=== PATIENT | female | born 1995 | race African-American/Black ===

== ENCOUNTER 2020-05-28 09:53 | Emergency (ER) | payer BC, OTHER ==
[2020-05-28] MEDS ORDERED: PROMETHAZINE INJ 25 MG/ML AMP ONE (10:34)
[2020-05-28] MEDS ORDERED: NA CHLORIDE 0.9% 1,000 ML ONE (10:34)
[2020-05-28] MEDS ORDERED: DIPHENHYDRAMINE 50 MG/ML VIAL ONE (10:34)
[2020-05-28 10:37] LABS: Urine Blood NEGATIVE (NEG); Urine Glucose NEGATIVE (NEG); Urine Protein NEGATIVE (NEG); Urine Specific Gravity 1.025 (1.005-1.030)
[2020-05-28 10:51] LABS: Urine Bacteria >50 /HPF (<20); Urine RBC <5 /HPF (NONE SEEN)
[2020-05-28 10:53] LABS: Absolute Lymphocytes (CBC) 1.7 K/uL (0.7-4.9); Basophils % 0.3 % (0-1.3); Lymphocytes % 14.3 % (15.3-44.8); MPV 7.7 fL (7.6-11.3); RBC Red Blood Cell Count 4.72 M/uL (3.86-4.86)
[2020-05-28 11:04] LABS: BUN Blood Urea Nitrogen 7 mg/dL (7-18); Bicarbonate 23 mmol/L (21-32); Glucose Level 87 mg/dL (74-106); Potassium 3.9 mmol/L (3.5-5.1); Sodium Level 136 mmol/L (136-145)
--- NOTE | 2020-05-28 11:21 | ER ---
Nurse's Notes [facility] Name: Fabrice Palma Age: 24 yrs Sex: Female : 1995 Arrival Date: 05/28/2020 Time: 09:56 Bed 6 Private MD: Diagnosis: Headache;Urinary tract infection, site not specified Presentation: 05/28 10:05 Chief complaint: Patient states: Frontal LOPEZ since Saturday, no relief with Tylenol, 10 jl7 weeks . 10:05 Coronavirus screen: Client denies travel out of the [place] in the last 14 days. headache, 7 Client presents with at least one sign or symptom that may indicate coronavirus-19. Standard/surgical mask placed on the client. Provider contacted for isolation considerations. Ebola Screen: No symptoms or risks identified at this time. Initial Sepsis Screen: Does the patient meet any 2 criteria? No. Patient's initial sepsis screen is negative. Does the patient have a suspected source of infection? No. Patient's initial sepsis screen is negative. Risk Assessment: Do you want to hurt yourself or someone else? Patient reports no desire to harm self or others. Onset of symptoms was May 24, 2020. Care prior to arrival: None. 10:05 Method Of Arrival: Ambulatory [facility] 10:05 Acuity: MOHINI 3 jl7 Triage Assessment: 10:05 Headache History: The patient has had previous headaches and this one is similar to jl7 previous episodes. General: Appears in no apparent distress. uncomfortable, Behavior is calm, cooperative, appropriate for age. Pain: Complains of pain in forehead Pain does not radiate. Pain currently is 7 out of 10 on a pain scale. Quality of pain is described as pressure, Pain began x5 days Is continuous, Also complains of no other associated symptoms. Neuro: Level of Consciousness is awake, alert, obeys commands, Oriented to person, place, time, situation. Cardiovascular: Patient's skin is warm and dry. Respiratory: Airway is patent Respiratory effort is even, unlabored, Respiratory pattern is regular, symmetrical. GI: Abdomen is non-distended, Patient currently denies diarrhea, nausea, vomiting. : No signs and/or symptoms were reported regarding the genitourinary system. Denies burning with urination. Derm: Skin is pink, warm \T\ dry. 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 - Social history:: Smoking status: Patient denies any tobacco usage or history of. Screenin:05 Abuse screen: Denies threats or abuse. Denies injuries from another. Nutritional jl7 screening: No deficits noted. Tuberculosis screening: No symptoms or risk factors identified. Fall Risk IV access (20 points). Total Santoro Fall Scale indicates No Risk (0-24 pts). Assessment: 10:05 General: see triage assessment. jl7 11:21 Reassessment: Patient appears in no apparent distress at this time. Patient and/or jl7 family updated on plan of care and expected duration. Pain level reassessed. Patient is alert, oriented x 3, equal unlabored respirations, skin warm/dry/pink. LOPEZ rate 2/10 at this time Patient states feeling better. Patient states symptoms have improved. 11:27 Reassessment: Pt will be discharged once fluids are done infusing. jl7 Vital Signs: 10:05 BP 123 / 80; Pulse 83; Resp 15; Temp 98.2; Pulse Ox 100% ; Weight 122.47 kg; Pain 7/10; jl7 11:16 BP 112 / 77; Pulse 84; Resp 16; Pulse Ox 98% ; jl7 11:21 Pain 2/10; jl7 Taz Coma Score: 11:24 Eye Response: spontaneous(4). Verbal Response: oriented(5). Motor Response: obeys kb commands(6). Total: 15. ED Course: 09:56 Patient arrived in ED. ag5 09:56 Lauro Kohler MD is Attending Physician. rn 09:58 [facility]C [facility] kb 09:58 Lauro Kohler MD is Attending Physician. kb 10:05 Arm band placed on right wrist. jl7 10:05 Patient has correct armband on for positive identification. Placed in gown. Bed in low jl7 position. Call light in reach. Side rails up X 1. Pulse ox on. NIBP on. Warm blanket given. 10:07 Mati Rader, RN is Primary Nurse. jl7 10:30 Initial lab(s) drawn, by nv, sent to lab. Urine collected: clean catch specimen, clear. jl7 Inserted saline lock: 20 gauge in right hand, using aseptic technique. Blood collected. 10:50 Triage completed. jl7 12:00 No provider procedures requiring assistance completed. IV discontinued, intact, jl7 bleeding controlled, No redness/swelling at site. Pressure dressing applied. Administered Medications: 10:40 Drug: NS 0.9% 1000 ml Route: IV; Rate: 1000 ml; Site: right hand; jl7 11:55 Follow up: Response: No adverse reaction; IV Status: Completed infusion; IV Intake: jl7 1000ml 10:40 Drug: Benadryl 12.5 mg Route: IVP; Site: right hand; jl7 11:05 Follow up: Response: No adverse reaction; Pain is decreased jl7 10:45 Drug: Phenergan 6.25 mg Route: IVP; Site: right hand; jl7 11:05 Follow up: Response: No adverse reaction; Pain is decreased jl7 11:31 Drug: Macrobid 100 mg Route: PO; jl7 12:01 Follow up: Response: No adverse reaction jl7 Intake: 11:55 IV: 1000ml; Total: 1000ml. jl7 Outcome: 11:21 Discharge ordered by . kb 12:01 Discharged to home ambulatory. jl7 12:01 Condition: stable 12:01 Discharge instructions given to patient, Instructed on discharge instructions, follow up and referral plans. medication usage, Demonstrated understanding of instructions, follow-up care, medications, Prescriptions given X 1. 12:01 Patient left the ED. jl7 Signatures: Michaela Garcia, COMPLIANCE TECHNICIAN-C COMPLIANCE TECHNICIAN-Ckb Lauro Kohler MD MD rn Leal, Jahala, RN RN jl7 Marlon Brizuela ag5
--- NOTE | 2020-05-28 11:22 | EDPHYS ---
Physician Documentation [facility] Name: Fabrice Palma Age: 24 yrs Sex: Female : 1995 Arrival Date: 05/28/2020 Time: 09:56 Bed 6 Private MD: ED Physician Lauro Kohler HPI: 05/28 11:25 This 24 yrs old Black Female presents to ER via Ambulatory with complaints of Headache. kb 11:25 The patient complains of pain to the forehead. The patient describes the headache as kb constant. Onset: The symptoms/episode began/occurred 5 day(s) ago. Associated signs and symptoms: Pertinent positives: Photophobia Pertinent negatives: dizziness, fever, nausea, neck stiffness, paresthesias, sinus congestion, sinus tenderness, vomiting. Severity of symptoms: At its worst the pain was mild, moderate, in the emergency department the pain is unchanged. Headache History: Denies prior headaches. The symptoms are alleviated by pedialyte the symptoms are aggravated by lights. The patient has not experienced similar symptoms in the past. The patient has not recently seen a physician. Pt reports headache since Saturday that has gotten worse. States drinking pedialyte helps the headache, but she is having increase in photophobia. Denies f/c/n/v/d/cough/congestion. . 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 - Social history:: Smoking status: Patient denies any tobacco usage or history of. ROS: 11:29 Constitutional: Negative for fever, chills, and weight loss, Cardiovascular: Negative kb for chest pain, palpitations, and edema, Respiratory: Negative for shortness of breath, cough, wheezing, and pleuritic chest pain, Abdomen/GI: Negative for abdominal pain, nausea, vomiting, diarrhea, and constipation, MS/Extremity: Negative for injury and deformity, Skin: Negative for injury, rash, and discoloration. 11:29 Neuro: Positive for headache. Exam: 11:28 Constitutional: This is a well developed, well nourished patient who is awake, alert, kb and in no acute distress. Head/Face: Normocephalic, atraumatic. Eyes: Pupils equal round and reactive to light, extra-ocular motions intact. Lids and lashes normal. Conjunctiva and sclera are non-icteric and not injected. Cornea within normal limits. Periorbital areas with no swelling, redness, or edema. Chest/axilla: Normal chest wall appearance and motion. Nontender with no deformity. No lesions are appreciated. Cardiovascular: Regular rate and rhythm with a normal S1 and S2. No gallops, murmurs, or rubs. Normal PMI, no JVD. No pulse deficits. Respiratory: Lungs have equal breath sounds bilaterally, clear to auscultation and percussion. No rales, rhonchi or wheezes noted. No increased work of breathing, no retractions or nasal flaring. Abdomen/GI: Soft, non-tender, with normal bowel sounds. No distension or tympany. No guarding or rebound. No evidence of tenderness throughout. Skin: Warm, dry with normal turgor. Normal color with no rashes, no lesions, and no evidence of cellulitis. MS/ Extremity: Pulses equal, no cyanosis. Neurovascular intact. Full, normal range of motion. 11:28 Neuro: Orientation: is normal, to person, place, time \T\ situation. Mentation: is normal, able to follow commands, Motor: is normal, moves all fours, Sensation: is normal, Gait: is steady, without difficulty. Vital Signs: 10:05 BP 123 / 80; Pulse 83; Resp 15; Temp 98.2; Pulse Ox 100% ; Weight 122.47 kg; Pain 7/10; jl7 11:16 BP 112 / 77; Pulse 84; Resp 16; Pulse Ox 98% ; jl7 11:21 Pain 2/10; jl7 Taz Coma Score: 11:24 Eye Response: spontaneous(4). Verbal Response: oriented(5). Motor Response: obeys kb commands(6). Total: 15. MDM: 10:02 Patient medically screened. kb 11:24 Data reviewed: vital signs, nurses notes. Data interpreted: Pulse oximetry: on room air kb is 98 %. Interpretation: normal. Counseling: I had a detailed discussion with the patient and/or guardian regarding: the historical points, exam findings, and any diagnostic results supporting the discharge/admit diagnosis, lab results, the need for outpatient follow up, a family practitioner, to return to the emergency department if symptoms worsen or persist or if there are any questions or concerns that arise at home. 05/28 10:12 Order name: CBC with Diff; Complete Time: 11:17 kb 05/28 10:12 Order name: Basic Metabolic Panel; Complete Time: 11:17 kb 05/28 10:26 Order name: Urine Dipstick--Ancillary (enter results); Complete Time: 10:38 eb 05/28 10:26 Order name: Urine --Ancillary (enter results); Complete Time: 10:38 eb 05/28 10:26 Order name: Urine Microscopic Only; Complete Time: 11:17 eb 05/28 10:12 Order name: Urine Dipstick-Ancillary (obtain specimen); Complete Time: 10:46 kb Administered Medications: 10:40 Drug: NS 0.9% 1000 ml Route: IV; Rate: 1000 ml; Site: right hand; jl7 11:55 Follow up: Response: No adverse reaction; IV Status: Completed infusion; IV Intake: jl7 1000ml 10:40 Drug: Benadryl 12.5 mg Route: IVP; Site: right hand; jl7 11:05 Follow up: Response: No adverse reaction; Pain is decreased jl7 10:45 Drug: Phenergan 6.25 mg Route: IVP; Site: right hand; jl7 11:05 Follow up: Response: No adverse reaction; Pain is decreased jl7 11:31 Drug: Macrobid 100 mg Route: PO; jl7 12:01 Follow up: Response: No adverse reaction jl7 Disposition: 12:10 Co-signature as Attending Physician, Lauro Kohler MD. rn Disposition: 05/28/20 11:21 Discharged to Home. Impression: Headache, Urinary tract infection, site not specified. - Condition is Stable. - Discharge Instructions: Urinary Tract Infection, Adult, [id number], General Headache Without Cause, Uggb-[id number]. - Prescriptions for Macrobid 100 mg Oral Capsule - take 1 capsule by ORAL route every 12 hours for 5 days; 10 capsule. - Medication Reconciliation Form, Thank You Letter, Antibiotic Education, Prescription Opioid Use form. - Follow up: Emergency Department; When: As needed; Reason: Worsening of condition. Follow up: Private Physician; When: 2 - 3 days; Reason: Recheck today's complaints, Continuance of care, Re-evaluation by your physician. Signatures: Dispatcher [employer] EDMichaela Carbajal, RA CANDELARIAP-Lauro Haddad MD MD rn Leal, Jahala, RN RN jl7 Corrections: (The following items were deleted from the chart) 12:01 11:21 05/28/2020 11:21 Discharged to Home. Impression: Headache; Urinary tract jl7 infection, site not specified. Condition is Stable. Forms are Medication Reconciliation Form, Thank You Letter, Antibiotic Education, Prescription Opioid Use. Follow up: Emergency Department; When: As needed; Reason: Worsening of condition. Follow up: Private Physician; When: 2 - 3 days; Reason: Recheck today's complaints, Continuance of care, Re-evaluation by your physician. kb
[2020-05-28] MEDS ORDERED: NITROFURAN MACRO 100 MG CAP PO ONE (11:46)
[2020-05-28 12:08] VITALS: TEMP 98.2
[2020-05-28 12:09] VITALS: BP 112/77; O2SAT 98
== END 2020-05-28 12:01 | disposition home or self-care (01) ==
LOC: ER 09:53
DX: O23.41 Unspecified infection of urinary tract in pregnancy, first trimester (principal); Z3A.10 10 weeks gestation of pregnancy
CPT/HCPCS: 96361; 85025; 80048; 36415; 81025; 96375; 96374; 99284; J2550; J1200; J7030; 81003; 81015

== ENCOUNTER 2020-11-20 18:58 | Emergency (ER) | payer OTHER ==
--- OUTSIDE RECORDS SUMMARY | 2020-11-20 19:00 | XMS REPORT | Continuity of Care Document ---
:1995 Author Organization [facility] t Address [address] [place] [address] Care Team Providers Name Role Phone Sami Slater DO Attending Clinician Graeme BOWDEN Attending Clinician Doctor Unassigned, Name Attending Clinician Unavailable Frederick Crooks Attending Clinician Problems This patient has no known problems. Allergies, Adverse Reactions, Alerts This patient has no known allergies or adverse reactions. Medications This patient has no known medications. Procedures This patient has no known procedures. Encounters Start End Encounter Admission Attending Care Care Encounter Source Date/Time Date/Time Type Type Clinicians Facility Department ID 2020-06-28 2020-06-28 Patient Bryon [facility] [id number] 00:00:00 00:00:00 Outreach [facility] [id number] Sami [facility] [id number] [place] [id number] 2020-06-06 2020-06-06 Emergency Graeme KSLUIZ [id number] 08:16:00 12:08:00 Jose Roberto Christy [id number] [place] [id number] [place] [id number] 2020-06-06 2020-06-06 Orders Doctor DAVIS [id number] 00:00:00 00:00:00 Only UnassignedJENI [id number] [place] [id number] [id number] 2019-11-09 2019-11-09 Orders Doctor RYAN [id number] 00:00:00 00:00:00 Only Unassigned, JENI [id number] [place] [id number] 2019-10-30 2019-10-30 Office [facility] [id number] 14:15:34 15:31:10 Visit Mariluz Mack CHAIR INSPECTOR [id number] [place] [id number] MATERNAL [id number] & CHILD [address] [place] [address] 2019-10-30 2019-10-30 Orders Doctor RYAN [id number] 00:00:00 00:00:00 Only Unassigned, JENI [id number] [place] [id number] [id number] Results This patient has no known results.
--- NOTE | 2020-11-20 19:22 | ER ---
Nurse's Notes [facility] Name: Fabrice Palma Age: 25 yrs Sex: Female : 1995 Arrival Date: 11/20/2020 Time: 19:00 Bed Waiting Private MD: Diagnosis: Presentation: 11/20 19:21 Note registration notified pt left the ED will see her PCP. bb ED Course: 19:00 Patient arrived in ED. ds1 Administered Medications: No medications were administered Outcome: 19:22 Patient left the ED. bb Signatures: Leslie Daniel ds1 Hattie Snider RN RN bb
== END 2020-11-20 19:22 | disposition left against medical advice (07) ==
LOC: ER 18:58
DX: Z02.9 Encounter for administrative examinations, unspecified (principal)